=== PATIENT | female | born 2000 | race Caucasian/White ===

== ENCOUNTER 2022-11-06 08:01 | Inpatient (IN) | payer OTHER ==
[~2022-11-06] VITALS: Ht 170.2 cm; Wt 84.1 kg
[2022-11-06] VITALS (35 sets, daily range): BP systolic 113–152; BP diastolic 60–92; PULSE 59–130; TEMP 97.3–98.9
--- NOTE | 2022-11-06 08:39 | NUR ---
0815 - Pt and spouse arrive ambulatory to unit. Pt changes into gown, EFM explained and placed. Pt reports leaking of fluid since 2229 last night and contractions continuing since, getting stronger and more regular. Pt denies vaginal bleeding and reports good movement. VS taken. Amnitest swab done, positive. SVE -/-3. Dr. Padron notified at 0833, see physician notification.
[2022-11-06 09:13] LABS: BASO % 0.3 % (0.0-2.0); EOS % 0.1 % (0.0-4.0); GRAN # 9.6 K/mm3 (1.4-6.5); GRAN % 82.6 % (42.2-75.2); HEMATOCRIT 36.5 % (37.0-47.0); HEMOGLOBIN 12.3 g/dl (12.5-16.0); LYMPH # 1.3 K/mm3 (1.2-3.4); LYMPH % 10.7 % (20.0-51.0); MEAN CELL VOLUME 80 fl (80.0-100.0); MEAN CORPUSCULAR HEMOGLOBIN 27 pg (27-31); MEAN CORPUSCULAR HGB CONC 34 g/dl (33.0-37.0); MEAN PLATELET VOLUME 10.9 fl (7.4-10.4); MONO # 0.7 K/mm3 (0.1-0.6); PLATELET COUNT 281 K/mm3 (130-400); RED BLOOD COUNT 4.58 M/mm3 (4.10-5.30); REDCELL DISTRIBUTION WIDTH-CV 13.8 % (11.5-14.5)
[2022-11-06] MEDS ORDERED: PRENATAL TABLET PO (09:32)
--- NOTE | 2022-11-06 12:08 | NUR ---
1145 - Pt requesting pain medication. Dr. Padron on unit, orders for 1mg stadol obtained.
--- NOTE | 2022-11-06 13:32 | NUR ---
1215 - Dr. Padron to pt bedside, discuss plan of care. SVE /0. Recommends epidural for rest and relaxation prior to pushing. Pt agrees. PAVEL Licea notified. 1253 - PAVEL Licea to bedside. Pt repositioned sitting at bedside for epidural placement. Difficulty tracing FHR and contractions due to maternal position and movement. 1303 - Pt repositioned supine WL for comfort.
--- NOTE | 2022-11-06 16:58 | NUR ---
1337 - Fontana catheter placed. 1340 - Dr. Padron to pt bedside. SVE per provider 9-/+2. Pt continues resting at this time 1429 - SVE /+2. Dr. Padron on unit and notified. Ok to start pushing. Pushing process discussed with pt, questions invited and answered. 1440 - Fontana catheter removed. Pt repositioned for pushing. 1444 - Pt begins pushing with contractions. 1515 - Difficulty tracing FHR during pushing. 1530 - Dr. Padron and nursery called to bedside for delivery. 1542 - Viable male infant delivered via attended by Dr. Padron. Infant placed on mother's abdomen where dried and stimulated. Care of infant transferred to Tati Banuelos RN of nursery. 1546 - Placenta spontaneously delivered by Dr. Padron. Fundal massage provided. Pitocin started per protocol. Repair of 2nd degree and right labial lacerations performed by Dr. Padron, see physician notes. Pericare provided, clean bed pad and ice pack placed. Pt repoisitoned for comfort.
[2022-11-07 01:30] VITALS: BP 108/60; PULSE 70; TEMP 97.9
[2022-11-07 07:09] VITALS: BP 115/70; BP 137/89; PULSE 110; PULSE 67; TEMP 97.8
[2022-11-07] MEDS ORDERED: MOTRIN 800800 MG/TAB PO (07:16)
--- NOTE | 2022-11-07 09:32 | NUR ---
Initial visit attempt; Family resting, Juvenile Detention Officer left card offering congratulations for the of their son and information regarding the availability of [facility] at our hospital.
== END 2022-11-07 17:30 | disposition home or self-care (01) | DRG 807 ==
LOC: LDRO 08:01 → LDR 09:43 → OB 09:43
PROVIDERS: ADMIT Obstetrics & Gynecology
PROC: 10E0XZZ Delivery of Products of Conception, External Approach (ICD-10-PCS; principal; 2022-11-06)
PROC: 0KQM0ZZ Repair Perineum Muscle, Open Approach (ICD-10-PCS; 2022-11-06)
PROC: 3E033VJ Introduction of Other Hormone into Peripheral Vein, Percutaneous Approach (ICD-10-PCS; 2022-11-06)
DX: O99.02 Anemia complicating childbirth (principal); Z37.0 Single live birth; O70.1 Second degree perineal laceration during delivery; D64.9 Anemia, unspecified; O75.81 Maternal exhaustion complicating labor and delivery; Z3A.38 38 weeks gestation of pregnancy; Z86.16 Personal history of COVID-19
CPT/HCPCS: J0595; J1200; J2405; J2590; J2795; J7120

== ENCOUNTER 2024-01-18 06:31 | Outpatient (CLI) | payer OTHER ==
[~2024-01-18] VITALS: Ht 170.2 cm; Wt 77.7 kg
[~2024-01-18 06:31] MED LIST: MOTRIN 800800 MG/TAB PO; PRENATAL TABLET PO
[2024-01-18 07:00] VITALS: BP 124/80; PULSE 86; TEMP 97.8
--- NOTE | 2024-01-18 07:00 | NUR ---
0635- Pt arrives on unit ambulatory with complaints of UCs and possible ROM. 0641- Pt into bed, EFM and TOCO applied and tracing well. Pt states she started ozzy early this morning around 0200 but they have been irregurlar in timing and strength. Pt states she lost her mucous plug yesterday and had a gush of fluid last evening but unsure if her water is broken. Pt denies VB. +FM per Pt. Assessments completed. 0655- Amniotrace test completed, Pt encouraged to cough, no color change noted, test negative. SVE /-3. Discussed to monitor contractions and FHR for an hour and recheck cervix. Pt denies questions. Water pitcher provided for PO hydration. TOCO adjusted, Pt verbalizes that she has not felt a contractions since being at the hospital. Pt reassured that we will continue to monitor her and the baby. Understanding verbalized.
[2024-01-18] MEDS ORDERED: LR 1,000 ML IV PRN (07:15)
--- NOTE | 2024-01-18 07:45 | NUR ---
0735- Discussed options to stay and have repeat SVE or discharge home now if Pt is comfortable with that. Pt denies feeling any contractions since being in hospital so is comfortable going home. EFM and TOCO off. 0740- Discharge paperwork provided and explained. Labor precautions given. Pt and spouse verbalize understanding. Pt ambulates off unit in stable condition.
== END 2024-01-18 07:45 | disposition home or self-care (01) ==
LOC: LDRO 06:31
DX: O26.893 Other specified pregnancy related conditions, third trimester (principal); E75.5 Other lipid storage disorders; Z3A.38 38 weeks gestation of pregnancy

== ENCOUNTER 2024-01-20 22:15 | Inpatient (IN) | payer OTHER ==
[~2024-01-20] VITALS: Ht 170.2 cm; Wt 78.2 kg
[2024-01-20 23:00] VITALS: BP 125/75; PULSE 75; TEMP 98
[2024-01-20] MEDS ORDERED: LR 1,000 ML IV SCH (23:00)
[2024-01-20 23:27] LABS: BASO % 0.1 % (0.0-2.0); GRAN # 7.9 K/mm3 (1.4-6.5); HEMOGLOBIN 10.3 g/dl (12.5-16.0); LYMPH # 1.3 K/mm3 (1.2-3.4); LYMPH % 12.9 % (20.0-51.0); MEAN CELL VOLUME 79 fl (80.0-100.0); MEAN CORPUSCULAR HEMOGLOBIN 26 pg (27-31); MEAN CORPUSCULAR HGB CONC 33 g/dl (33.0-37.0); MEAN PLATELET VOLUME 11.5 fl (7.4-10.4); MONO # 0.7 K/mm3 (0.1-0.6); MONO % 6.8 % (1.7-9.3); PLATELET COUNT 229 K/mm3 (130-400); RED BLOOD COUNT 3.96 M/mm3 (4.10-5.30); REDCELL DISTRIBUTION WIDTH-CV 13.2 % (11.5-14.5)
[2024-01-20 23:29] LABS: HEMATOCRIT 31.2 % (37.0-47.0)
[2024-01-20 23:30] VITALS: BP 127/71; PULSE 77
[2024-01-20] MEDS ORDERED: ROPivacaine PF 0.2% 200 ML IV ONE (23:38)
[2024-01-21] VITALS (27 sets, daily range): BP systolic 103–132; BP diastolic 58–87; PULSE 52–93; TEMP 97.8–98.3
[2024-01-21] MEDS ORDERED: diphenhydrAMINE 50 MG/ML 1 ML VIAL IV PRN (00:15)
[2024-01-21] MEDS ORDERED: Naloxone 0.4 MG/ML VIAL IV PRN ×2 (00:15→05:30)
[2024-01-21] MEDS ORDERED: diphenhydrAMINE 25 MG CAP PO PRN (00:15)
[2024-01-21] MEDS ORDERED: Ondansetron 4 MG/2 ML VIAL IV PRN (00:15)
[2024-01-21] MEDS ORDERED: ePHEDrine 50 MG/10 ML VIAL IV PRN (00:15)
[2024-01-21] MEDS ORDERED: LR & Oxytocin 500 ML IV SCH (02:00)
[2024-01-21] MEDS ORDERED: Ibuprofen 600 MG TAB PO ONE (04:45)
[2024-01-21] MEDS ORDERED: Acetaminophen 500 MG TAB PO ONE (05:00)
[2024-01-21] MEDS ORDERED: Magnes Hydrox (MOM) 80 MG/ML 30 ML CUP PO PRN (05:15)
[2024-01-21] MEDS ORDERED: Loratadine 10 MG TAB PO PRN (05:15)
[2024-01-21] MEDS ORDERED: Witch Hazel 50% Pads Bulk TUB TP PRN (05:30)
[2024-01-21] MEDS ORDERED: Phenylephrine/Mineral Oil/Petrolatum 57 GM TUBE RC PRN (05:30)
[2024-01-21] MEDS ORDERED: Acetaminophen 500 MG TAB PO SCH (05:30)
[2024-01-21] MEDS ORDERED: Measles/Mumps/Rubella Virus Vaccine Live w Diluent 0.5 ML VIAL SQ SCH (05:30)
[2024-01-21] MEDS ORDERED: Mag/Al Hydrox/Simeth Susp 30 ML CUP PO PRN (05:30)
[2024-01-21] MEDS ORDERED: Ibuprofen 800 MG TAB PO SCH (05:30)
[2024-01-21] MEDS ORDERED: oxyCODONE 5 MG TAB PO PRN (05:30)
[2024-01-21] MEDS ORDERED: Sennosides/Docusate 8.6-50 MG TAB PO SCH (08:00)
--- NOTE | 2024-01-21 09:43 | NUR ---
0800 RN BEDSIDE DISCUSSING POC WITH PT AND SPOUSE. EDUCATION FOLDER PROVIDED/EXPLAINED. PT VERBALIZES UNDERSTANDING AND HAS NO QUESTIONS AT THIS TIME.
--- NOTE | 2024-01-21 18:30 | NUR ---
Report recieved at this time. Resting in bed, . POC reviewed and whiteboard updated. Questions invited and answered. Requests for infant to go to the nursery and be fed through the night after "bedtime."
[2024-01-21] MEDS ORDERED: traZODone 50 MG TAB PO PRN (21:00)
[2024-01-22 07:25] VITALS: BP 116/82; PULSE 67; TEMP 98
--- NOTE | 2024-01-22 09:43 | NUR ---
Initial visit; Parents thanked Breakfast Server for offering congratulations and God's blessings for the of their son. Breakfast Server thanked family for choosing [facility] and glad that their stay here has been a good one.
== END 2024-01-22 11:40 | disposition home or self-care (01) | DRG 807 ==
LOC: LDRO 22:15 → LDR 22:18 → OB 01-21 06:15
PROVIDERS: Obstetrics & Gynecology; ADMIT Obstetrics & Gynecology
PROC: 10E0XZZ Delivery of Products of Conception, External Approach (ICD-10-PCS; principal; 2024-01-21)
PROC: 0KQM0ZZ Repair Perineum Muscle, Open Approach (ICD-10-PCS; 2024-01-21)
DX: O69.81X0 Labor and delivery complicated by cord around neck, without compression, not applicable or unspecified (principal); Z37.0 Single live birth; Z3A.39 39 weeks gestation of pregnancy; O70.1 Second degree perineal laceration during delivery
CPT/HCPCS: J2590; J2795; J7120